=== PATIENT | female | born 1960 | race Asian ===

== ENCOUNTER 2018-06-08 11:17 | Emergency (ER) | payer OTHER ==
[~2018-06-08] VITALS: Ht 147.3 cm; Wt 59.0 kg
[2018-06-08 11:38] VITALS: BP 163/69
--- NOTE | 2018-06-08 12:53 | NUR ---
PT BIB TO THE ED WITH THE CHIEF C/O DIZZINESS AFTER HEARING SOUND IN RIGHT EAR SINCE THIS MORNING. DENIES N/V/D AT THIS TIME. DENIES EAR PAIN. NO ANY DISCHARGE NOTED IN EAR. DENIES DIZZINESS AT THIS TIME. LUNGS CLEAR. ABDOMEN SOFT ROUND AND NON-TENDER. ACTIVE BOWEL SOUND. NO ANY C/O PAIN AT THIS TIME. PLACED IN BED IN COMFORTABLE POSITION. AT THE BED SIDE.
[2018-06-08] MEDS ORDERED: NACL 0.9% 1,000 ML IV SCH (13:53)
[2018-06-08] MEDS ORDERED: MECLIZINE 25 MG TAB PO ONE (13:55)
[2018-06-08 14:31] LABS: APPEARANCE,URINE CLEAR (CLEAR); BILIRUBIN,URINE NEGATIVE (NEGATIVE); BLOOD, URINE NEGATIVE (NEGATIVE); COLOR,URINE YELLOW (YELLOW); LEUKOCYTE ESTERASE ,URINE NEGATIVE (NEGATIVE); NITRITE, URINE NEGATIVE (NEGATIVE); UGLUCOSE NEGATIVE (NEGATIVE)
[2018-06-08 14:36] LABS: BASOPHILS # (AUTO) 0.1 K/uL (0.00-0.22); BASOPHILS % (AUTO) 0.8 % (0.0-2.0); EOSINOPHILS # (AUTO) 0.2 K/uL (0-0.4); HEMATOCRIT 38.3 % (36-48); HEMOGLOBIN 12.2 g/dL (12.0-16.0); LYMPHOCYTES # (AUTO) 2.3 K/uL (2.5-16.5); LYMPHOCYTES % (AUTO) 35.5 % (20.5-51.1); MEAN CORPUSCULAR HEMOGLOBIN 24 pg (27-31); MEAN CORPUSCULAR HGB CONC 32 g/dL (33-37); MEAN CORPUSCULAR VOLUME 76.1 fL (80-94); MONOCYTES # (AUTO) 0.4 K/uL (0.8-1.0); MONOCYTES % (AUTO) 6.3 % (1.7-9.3); NEUTROPHILS # (AUTO) 3.5 K/uL (1.8-7.7); NEUTROPHILS % (AUTO) 54.4 % (42.2-75.2); PLATELET COUNT (AUTO) 280 K/uL (140-450); RED BLOOD CELL COUNT(AUTO) 5.03 MIL/uL (4.20-5.40); RED CELL DISTRIBUTION WIDTH 14.7 % (11.6-13.7); WHITE BLOOD COUNT (AUTO) 6.4 K/uL (4.8-10.8)
[2018-06-08 14:58] LABS: ALBUMIN 3.5 g/dL (3.4-5.0); ANION GAP 12.2 (8-16); CREATININE 0.6 mg/dL (0.6-1.3); POTASSIUM 3.2 mmol/L (3.5-5.1); TOTAL BILIRUBIN 0.5 mg/dL (0.0-1.0)
[2018-06-08] MEDS ORDERED: POTASSIUM CHLORIDE 10 MEQ TABER PO ONE (15:10)
[2018-06-08] MEDS ORDERED: MAGNESIUM OXIDE 400 MG TAB PO ONE (15:10)
[2018-06-08 15:48] VITALS: BP 163/69
--- NOTE | 2018-06-08 15:49 | NUR ---
Patient discharged with v/s stable. Written and verbal after care instructions given and explained. Patient verbalized understanding. Ambulatory with steady gait. All questions addressed prior to discharge. Advised to follow up with PMD.
--- NOTE | 2018-06-10 06:49 | NUR ---
Late entry. Confirmed with RN that 1000 ml 0.9NS IV was given and completed at 1500.
== END 2018-06-08 15:49 | disposition home or self-care (01) ==
LOC: MED 11:17
DX: E87.6 Hypokalemia (principal); R19.7 Diarrhea, unspecified; H93.11 Tinnitus, right ear; R51 Headache
CPT/HCPCS: 36415; 80053; 81003; 84484; 85025; 93005; 96360; 99284; J7030; J8597